=== PATIENT | male | born 1950 | race Caucasian/White ===

== ENCOUNTER 2017-02-11 07:50 | Outpatient (CLI) | payer MEDICARE ==
--- NOTE | 2017-02-11 08:51 | ULT ---
RIGHT UPPER QUADRANT ULTRASOUND: HISTORY: Elevated bilirubin, abnormal liver function tests. FINDINGS: The liver demonstrates increased echogenicity consistent with fatty infiltration. No focal mass or intrahepatic ductal dilatation is seen. There is an 8 x 9 mm shadowing calculus in the neck of the gallbladder without gallbladder wall thickening or pericholecystic fluid. The common duct measures 4 mm in diameter. The pancreas is not satisfactorily visualized due to overlying bowel gas. The ri ght kidney is normal. No free fluid is seen in the Morison's pouch. IMPRESSION: 1. Fatty liver. 2. Cholelithiasis. POS: OFF
== END 2017-02-11 07:51 | disposition home or self-care (01) ==
LOC: NAV ULT 07:50
PROVIDERS: ATTEND Family Medicine
DX: R17 Unspecified jaundice (principal)
CPT/HCPCS: 76705

== ENCOUNTER 2019-11-04 09:04 | Emergency (ER) | payer MEDICARE, OTHER ==
--- NOTE | 2019-11-04 10:02 | RAD ---
XR Ribs Rt>= 2 View W/PA CXR HISTORY: Injury, chest pain COMPARISON: None. FINDINGS: There are changes of median sternotomy. The heart size normal. The lungs are clear. There a re old right fourth and fifth rib fractures. No definite acute right rib fracture is seen.
== END 2019-11-04 10:39 | disposition home or self-care (01) ==
LOC: NAV ERS 09:04
DX: S20.211A Contusion of right front wall of thorax, initial encounter (principal); S40.011A Contusion of right shoulder, initial encounter; S50.311A Abrasion of right elbow, initial encounter; I10 Essential (primary) hypertension; E11.9 Type 2 diabetes mellitus without complications; E78.5 Hyperlipidemia, unspecified; E78.00 Pure hypercholesterolemia, unspecified; Z79.899 Other long term (current) drug therapy; W18.30XA Fall on same level, unspecified, initial encounter

== ENCOUNTER 2025-10-02 21:05 | Emergency (ER) | payer OTHER ==
[2025-10-02 21:54] LABS: Hematocrit 46.6 % (42.0-52.0); Hemoglobin 15.6 g/dL (14.0-18.0); Mean Corpuscular Hemoglobin 30.1 pg (27.0-31.0); Mean Corpuscular Volume 89.7 fl (78.0-98.0); Platelet Count 148 10x3/uL (130-400); Red Blood Cell (RBC) Count 5.19 mill/uL (4.70-6.10); White Blood Cell (WBC) Count 8.9 10x3/uL (4.8-10.8)
[2025-10-02 21:59] LABS: Bicarbonate (HCO3v) 20.6 mmol/L (22.0-28.0); CO2 Tension (PvCO2) 36.3 mmHg (42.0-51.0); Calcium, Ionized 1.16 mmol/L (1.15-1.33); Chloride 108 mmol/L (98-107); Hemoglobin - Calc 15.8 g/dL (14.0-18.0); Potassium 4.3 mmol/L (3.5-5.1); Sodium 135 mmol/L (138-145); T. Carbon Dioxide 21.7 mmol/L (22.0-28.0); vO2 Saturation-calc 88.1 % (60.0-85.0)
[2025-10-02 22:01] LABS: MDiff Complete? YES; Platelet Adequacy Comment Appears Adequate
[2025-10-02 22:02] LABS: ALT (SGPT) 14 U/L (Less than 45); AST (SGOT) 23 U/L (11-34); Albumin 4.0 g/dL (3.1-4.5); Alkaline Phosphatase 41 U/L (40-110); Anion Gap 18 mmol/L (10-20); BUN (Urea Nitrogen) 34 mg/dL (8.4-25.7); Bilirubin, Total 1.3 mg/dL (0.3-1.2); Calc. Creatinine Clearance 0 mL/min (70-130); Calcium 8.9 mg/dL (7.8-10.44); Carbon Dioxide 17 mmol/L (23-31); Chloride 105 mmol/L (98-107); Globulin 3.1 g/dL (2.4-3.5); Potassium 4.2 mmol/L (3.5-5.1); Sodium 136 mmol/L (136-145)
[2025-10-02 22:04] LABS: Glucose 441 mg/dL (83-110)
[2025-10-02 22:36] LABS: Glucose, Urine (Dipstick) >=1000 mg/dL (Negative); Leukocyte Negative (Negative); Protein, Urine (Dipstick) Negative (Neg-Trace); Specific Gravity, Urine 1.010 (1.005-1.030)
[2025-10-02 22:51] LABS: CAUTI Indications for Culture Dysuria,urgency,freq; RBC/HPF 0-3 HPF (0-3); WBC/HPF 0-3 HPF (0-3)
[2025-10-02 22:52] LABS: Bacteria/HPF Rare-Few HPF (None Seen)
[2025-10-02 22:53] LABS: Urine Culture Reflex No No
== END 2025-10-03 00:25 | disposition home or self-care (01) ==
LOC: NAV ERS 21:05
DX: E11.65 Type 2 diabetes mellitus with hyperglycemia (principal); E86.0 Dehydration; I10 Essential (primary) hypertension; E78.00 Pure hypercholesterolemia, unspecified; Z79.899 Other long term (current) drug therapy; Z79.84 Long term (current) use of oral hypoglycemic drugs
CPT/HCPCS: 36416; 71045; 80053; 81001; 82010; 82330; 82435; 82803; 84132; 84295; 85014; 85025; 96360; J1815; J7030